=== PATIENT | female | born 1990 | race African-American/Black ===

== ENCOUNTER 2017-07-18 19:18 | Emergency (ER) | payer OTHER ==
[~2017-07-18] VITALS: Ht 162.6 cm; Wt 62.3 kg
[2017-07-18] MEDS ORDERED: NS 1,000 ML IV ONE (20:00)
[2017-07-18 20:18] LABS: BASO % 0.3 % (0.0-1.0); EOS # 0.1 10^3/uL (0.0-0.50); EOS % 2.2 % (0.0-3.0); IMMATURE GRANULOCYTE % 0.3 % (0-0); LYMPH # 2.6 10^3/uL (1.5-6.5); LYMPH % 40.2 % (24.0-44.0); MEAN CORPUSCULAR HEMOGLOBIN 30.3 pg (27.0-33.0); MEAN CORPUSCULAR HGB CONC 33.5 g/dl (32.0-36.5); MEAN CORPUSCULAR VOLUME 90.5 fl (80.0-96.0); MONO # 0.3 10^3/uL (0.0-0.8); NEUTROPHILS # 3.4 10^3/uL (1.8-7.7); PLATELET COUNT, AUTOMATED 267 10^3/uL (150-450); RED CELL DISTRIBUTION WIDTH 12.3 % (11.5-14.5); WHITE BLOOD COUNT 6.4 10^3/uL (4.0-10.0)
[2017-07-18 20:48] LABS: ANION GAP 8 MEQ/L (8-16); BLOOD UREA NITROGEN 13 MG/DL (7-18); CALCIUM LEVEL 8.3 MG/DL (8.5-10.1); CARBON DIOXIDE LEVEL 27 MEQ/L (21-32); CHLORIDE LEVEL 105 MEQ/L (98-107); CREATININE FOR GFR 0.64 MG/DL (0.55-1.02); GLOMERULAR FILTRATION RATE > 60.0 (>60); GLUCOSE, FASTING 83 MG/DL (70-105); HCG, SERUM QUANTITATIVE 114 MIU/ML; POTASSIUM SERUM 3.7 MEQ/L (3.5-5.1); SODIUM LEVEL 140 MEQ/L (136-145)
--- NOTE | 2017-07-18 21:10 | REPUSA ---
Clinical history: Pain. Findings: Real-time transvaginal ultrasound images of the pelvis were obtained. An anteverted uterus is noted, measuring 9.1 x 5.6 x 5.7 cm. The uterus demonstrates normal echotexture and echogenicity. The endometrial canal appears unremarkable. There is no evidence of an intrauterine . The ri ght ovary measures 4.7 x 1.6 x 3.1 cm. There is a 2.4 cm right ovarian cyst. The left ovary measures 3.3 x 2.3 x 2.1 cm. No adnexal masses are seen. Color Doppler flow is seen within both ovaries. There is no evidence of free fluid. Impression: No evidence of an intrauterine . Complex right ovarian cyst. This could represen t a corpus luteum cyst. Differential diagnosis includes early , missed , or ectopic . Follow-up with serial serum beta hCG levels is recommended for further evaluation.
[2017-07-18 21:28] VITALS: BP 144/87
== END 2017-07-18 21:34 | disposition home or self-care (01) ==
LOC: M ED 19:18
DX: O20.0 Threatened abortion (principal)